=== PATIENT | male | born 1980 | race Two or more races ===

== ENCOUNTER 2016-11-07 12:50 | Emergency (ER) | payer SELFPAY ==
[2016-11-07 13:07] VITALS: BP 113/60
[2016-11-07] MEDS ORDERED: AMOX1TAB61 PO (13:24)
--- NOTE | 2016-11-07 13:24 | PHYS DOC ---
Past Medical History Past Medical History: High Cholesterol Past Surgical History: No Surgical History Alcohol Use: Occasionally Drug Use: None Adult General Chief Complaint Chief Complaint: COUGH HPI HPI Patient is a 36 year old emergency department as been in the cough and congestion last 2 weeks with a productive cough that is green in color. He states that he's been taken [id number]-[id number] medications with no relief. Patient 's unsure if his been having fevers or chills. He does state that he does not also is getting any better he does state he smokes occasionally. Patient states that he becomes short of air with coughing. He states that after coughing he states her up occasionally. Review of Systems Review of Systems Constitutional: Denies fever or chills [] Eyes: Denies change in visual acuity, redness, or eye pain [] HENT: Denies nasal congestion or sore throat [] Respiratory: Denies cough or shortness of breath [] Cardiovascular: No additional information not addressed in HPI [] GI: Denies abdominal pain, nausea, vomiting, bloody stools or diarrhea [] : Denies dysuria or hematuria [] Musculoskeletal: Denies back pain or joint pain [] Integument: Denies rash or skin lesions [] Neurologic: Denies headache, focal weakness or sensory changes [] Endocrine: Denies polyuria or polydipsia [] Physical Exam Physical Exam Constitutional: Well developed, well nourished, no acute distress, non-toxic appearance. [] HENT: Normocephalic, atraumatic, bilateral external ears normal, oropharynx moist, no oral exudates, nose normal. Bilateral tympanic membranes appear to be normal. Patient with frontal and maxillary sinus tenderness noted. Throat without erythematous redness noted. Eyes: PERRLA, EOMI, conjunctiva normal, no discharge. [] Neck: Normal range of motion, no tenderness, supple, no stridor. [] Cardiovascular:Heart rate regular rhythm, no murmur [] Lungs & Thorax: Bilateral breath sounds clear to auscultation [] Skin: Warm, dry, no erythema, no rash. [] Back: No tenderness Extremities: No tenderness, no cyanosis, no clubbing, ROM intact, no edema. [] Neurologic: Alert and oriented X 3, normal motor function, normal sensory function, no focal deficits noted. [] Psychologic: Affect normal, judgement normal, mood normal. [] Current Patient Data Vital Signs Vital Signs Date Time Temp Pulse Resp B/P (MAP) Pulse Ox O2 Delivery O2 Flow Rate FiO2 11/07/16 13:07 98.7 81 18 99 Room Air 98.7 EKG EKG [] Radiology/Procedures Radiology/Procedures [] Course & Med Decision Making Course & Med Decision Making Pertinent Labs and Imaging studies reviewed. (See chart for details) Patient was recommended to use Sudafed jtce-yew-bwuscct to help with the sinus pressure as well as Mucinex DM. Patient will be placed on Augmentin. Recommended plenty of fluids such as water propel or Gatorade. Tylenol or ibuprofen for fever chills or generalized body aches and discomfort. Patient will be discharged home in stable condition signs and symptoms to return back to emergency department been provided. [] Dragon Disclaimer Dragon Disclaimer This electronic medical record was generated, in whole or in part, using a voice recognition dictation system. Departure Departure Impression: Primary Impression: Sinusitis, acute Disposition: 01 HOME, SELF-CARE Condition: STABLE Referrals: NO PCP (PCP) Patient Instructions: Sinusitis, [id number] Additional Instructions: Activity as tolerated. Sudafed instructed by press tender [id number]. Mucinex DM instructed by press tender [id number]. Augmentin as prescribed. Tylenol or ibuprofen for fever chills or generalized body aches and discomfort. Drink plenty of fluids such as water, propel, or Gatorade. Follow-up to primary care physician next 3-5 days. Return back to emergency prior signs symptoms of become worse. Scripts Amoxicillin/Potassium Clav (AUGMENTIN [id number] TABLET) 1 Each Tablet 1 TAB PO BID, #20 TAB Prov: BRIANNA ALVAREZ APRN 11/07/16 BRIANNA ALVAREZ APRN November 07, 2016 13:24
== END 2016-11-07 13:29 | disposition home or self-care (01) ==
LOC: ER 12:50
DX: J01.90 Acute sinusitis, unspecified (principal); E78.00 Pure hypercholesterolemia, unspecified; F17.200 Nicotine dependence, unspecified, uncomplicated
CPT/HCPCS: 99283

== ENCOUNTER 2019-09-03 09:56 | Emergency (ER) | payer SELFPAY ==
[~2019-09-03 09:56] MED LIST: AMOX1TAB61 PO
== END 2019-09-03 11:29 | disposition left against medical advice (07) ==
LOC: ER 09:56
DX: R50.9 Fever, unspecified (principal); R05 Cough; Z53.21 Procedure and treatment not carried out due to patient leaving prior to being seen by health care provider